=== PATIENT | female | born 1985 | race Caucasian/White ===

== ENCOUNTER 2016-09-30 11:50 | Emergency (ER) | payer OTHER ==
[2016-09-30 11:55] VITALS: TEMP 98.1; BMI 20.5
[2016-09-30] MEDS ORDERED: Tetanus/Diphtheria Toxoids 0.5 ml Syringe IM ONE ×2 (12:37→12:44)
--- NOTE | 2016-09-30 13:39 | RAD ---
PROCEDURE: Left Ankle Radiographs. HISTORY: fall COMPARISON: Correlation made with concurrent radiographs left foot FINDINGS: BONES: Current study reveals no definitive radiographic evidence of acute displaced fracture nor dislocation. Talar dome intact. There is a small elliptical shaped well corticated bony density within the soft tissues subjacent to the inferior tip of the lateral malleolus that may represent some old posttraumatic mineralization or possibly bold unfused avulsion fracture. There is also a very tiny corticated bony density within the soft tissues adjacent to the medial aspect of the medial malleolus that may represent some old posttraumatic mineralization. JOINTS: No significant osteoarthritis. Ankle mortise maintained. . SOFT TISSUES: The suspect minimal bilateral soft tissue swelling OTHER FINDINGS: None. IMPRESSION: No evidence of acute displaced fracture nor dislocation. Small elliptical shaped bony density within the soft tissues subjacent to the inferior tip of the lateral malleolus that could represent some old posttraumatic mineralization versus old unfused avulsion fracture. Clinical correlation recommended. There may be some minimal mild bilateral soft tissue swelling
--- NOTE | 2016-09-30 13:43 | C.PDOC ---
History Of Present Illness 31 yr old female presents to the ER with complaints of left ankle and foot swelling and pain for 1 day. Patient reports history of fracture in the left ankle and ever since she states she easily keeps twisting the ankle. Patient denies recent trauma, leg pain, weakness or numbness. Time Seen by Provider: 09/30/16 12:14 Chief Complaint (Nursing): Lower Extremity Problem/Injury History Per: Patient History/Exam Limitations: no limitations Onset/Duration Of Symptoms: Days (1) Past Medical History Reviewed: Historical Data, Nursing Documentation, Vital Signs Vital Signs: Last Vital Signs Temp 98.1 F 09/30/16 11:55 Pulse 78 09/30/16 14:28 Resp 16 09/30/16 14:28 BP 112/74 09/30/16 14:28 Pulse Ox 96 09/30/16 15:01 Family History: States: No Known Family Hx - Social History Hx Alcohol Use: No Hx Substance Use: No - Immunization History Hx Tetanus Toxoid Vaccination: No Hx Influenza Vaccination: No Hx Pneumococcal Vaccination: No Review Of Systems Except As Marked, All Systems Reviewed And Found Negative. Musculoskeletal: Positive for: Foot Pain (Left foot/ankle pain and swelling ). Negative for: Leg Pain Neurological: Negative for: Weakness, Numbness Physical Exam - Physical Exam Appears: Non-toxic, No Acute Distress Skin: Warm, Dry, Other ((+) Small abrasion note dto the right knee. ) Head: Atraumatic, Normacephalic Oral Mucosa: Moist Extremity: Normal ROM, No Calf Tenderness, Capillary Refill (<2), Other (Left Ankle - Swelling and tenderness to the lateral malleolus and lateral aspect of the foot. ) Neurological/Psych: Oriented x3, Normal Speech Gait: Steady ED Course And Treatment O2 Sat by Pulse Oximetry: 96 (RA) Pulse Ox Interpretation: Normal - Other Rad X-Ray - Left Ankle X-Ray: Viewed By Me, Read By Radiologist Interpretation: PROCEDURE: Left Ankle Radiographs. HISTORY: fall. COMPARISON : Correlation made with concurrent radiographs left foot. FINDINGS: BONES: Current study reveals no definitive radiographic evidence of acute displaced fracture nor dislocation. Talar dome intact. There is a small elliptical shaped well corticated bony density within the soft tissues subjacent to the inferior tip of the lateral malleolus that may represent some old posttraumatic mineralization or possibly bold unfused avulsion fracture. There is also a very tiny corticated bony density within the soft tissues adjacent to the medial aspect of the medial malleolus that may represent some old posttraumatic mineralization. JOINTS: No significant osteoarthritis. Ankle mortise maintained. . SOFT TISSUES: The suspect minimal bilateral soft tissue swelling. OTHER FINDINGS: None. IMPRESSION: No evidence of acute displaced fracture nor dislocation. Small elliptical shaped bony density within the soft tissues subjacent to the inferior tip of the lateral malleolus that could represent some old posttraumatic mineralization versus old unfused avulsion fracture. Clinical correlation recommended. There may be some minimal mild bilateral soft tissue swelling X-Ray - Left Foot X-Ray: Viewed By Me, Read By Radiologist Interpretation: PROCEDURE: Left Foot Radiographs. HISTORY: fall. COMPARISON : Comparison made with prior radiographs left ankle. FINDINGS: BONES: No evidence of acute displaced fracture nor dislocation. Osseous structures appear intact. Tiny corticated bony densities adjacent to the medial and lateral malleoli are less well seen on this study. Please refer to concurrent radiographs of the left ankle and corresponding report for additional details. . JOINTS: Minor hallux valgus deformity with prominence of the of the overlying medial soft tissues. SOFT TISSUES: There appears to be mild lateral soft tissue swelling at the level of the head of the 5th metatarsal and 5th MTP joint. OTHER FINDINGS: None. IMPRESSION: No evidence of acute fracture seen. Suspect mild lateral soft tissue swelling at the level of the head of the 5th metatarsal as above. Progress Note: Air cast applied by industrial technology teacher, checked by me. Patient is also provided orthoshoe and cruthes and given referral for ortho follow up. Medical Decision Making Medical Decision Making: PLAN: * X-Ray - Left Ankle, Left Foot * Tylenol PO * Tetanus IM Disposition - Disposition Referrals: Bandar Wyman MD [Staff Provider] - Disposition: HOME/ ROUTINE Disposition Time: 14:07 Condition: STABLE Additional Instructions: Follow up with PMD and Orthopedist within 1-2 days. Return to ED if feel worse. Prescriptions: Ibuprofen [Motrin Tab] 600 mg PO Q8 #30 tab Instructions: Ankle Sprain (ED), Ankle Stirrup Splint (ED) - Clinical Impression Clinical Impression: Ankle sprain - PA / STAFF HOME THERAPY RN / Resident Statement MD/DO has reviewed & agrees with the documentation as recorded. - Scribe Statement The provider has reviewed the documentation as recorded by the [place] [facility] Amadeo All medical record entries made by the Jefferyibbrady were at my direction and personally dictated by me. I have reviewed the chart and agree that the record accurately reflects my personal performance of the history, physical exam, medical decision making, and the department course for this patient. I have also personally directed, reviewed, and agree with the discharge instructions and disposition.
[2016-09-30 14:29] VITALS: BP 112/74; PULSE 78; RESP 16
[2016-09-30 14:58] VITALS: O2SAT 96
== END 2016-09-30 14:28 | disposition home or self-care (01) ==
LOC: C.ER 11:50
DX: S93.402A Sprain of unspecified ligament of left ankle, initial encounter (principal); S80.211A Abrasion, right knee, initial encounter; X58.XXXA Exposure to other specified factors, initial encounter